=== PATIENT | female | born 1970 | race Caucasian/White ===

== ENCOUNTER 2024-11-21 10:02 | Emergency (ER) | payer SELFPAY ==
[2024-11-21 10:05] VITALS: BP 165/78
[2024-11-21] MEDS: NSS 1000 IV (10:28)
--- NOTE | 2024-11-21 10:30 | ED.GENMED ---
History of Present Illness
General
Chief Complaint: Abdominal Symptoms
Source: patient
Exam Limitations: none
Time Seen by Provider: 11/21/24 10:07
Nursing documentation reviewed up to this point in time: agreed with
History of Present Illness
History of Present Illness:
Patient germán is a 54-year-old female presents to the ER for evaluation. Patient reports she went to bed very late around 4:30 AM because she was wrapping presents and woke up at 8 AM feeling very nauseous and dizzy.
She went to her bathroom and and had vomiting diarrhea at the same time and had to lay on her floor. She was not able to get herself up and had to call EMS. Since then patient had another episode of diarrhea. She did receive Zofran from EMS and
does feel better.
She denies any fevers no other sick contacts at home.
Past History
Past History
ED Past Medical History: Fibromyalgia
Patient has exhibited threatening behavior?: No
Social History
Tobacco: Non-smoker
Alcohol: Occasional
Personal:
Living: with family
Review of Systems
Review of Systems
Allergies reviewed?: Yes
All Other Systems: ROS reviewed and negative except as documented in HPI and ROS
Constitutional: Reports fatigue; Denies fever
EENT: Reports no symptoms
Respiratory: Reports no symptoms
Cardiac: Reports no symptoms
ABD/GI: Reports nausea, vomiting and diarrhea; Denies abdominal pain
: Reports no symptoms
Musculoskeletal: Reports no symptoms
Skin: Reports no symptoms
Neurological: Reports no symptoms
Psychiatric: Reports no symptoms
Phy Exam
General Physical Exam
General Presentation: no apparent distress
General age: appears stated age
General Skin: warm and dry
General Habitus: normal
General Mental: alert
General Hydration: dry mucous membranes
Cardiovascular Exam
Cardiovascular Exam: regular rate/rhythm, no murmur and normal peripheral pulses
Pulmonary Exam
Pulmonary Exam: lungs clear and no respiratory distress
Neurological Exam
Neurological Exam: alert and oriented x3
Musculoskeletal Exam
Musculoskeletal Exam: full ROM
Skin Exam
Skin Exam: normal color and warm/dry
Psychiatric Exam
Psychiatric Exam: normal mood/affect
Course
Orders/Labs/Results
Orders:
Orders
11/21/24 10:26
Ondansetron Injectable [Zofran] 4 mg .ROUTE .STK-MED ONE
11/21/24 10:27
0.9% Sodium Chloride 1000 ml [Nss] 1,000 ml IV BOLUS
11/21/24 10:29
Complete Blood Count/With Diff Urgent
Comprehensive Metabolic Panel Urgent
Lipase Urgent
11/21/24 11:31
Ondansetron Injectable [Zofran] 4 mg IV NOW STA
Abnormal Lab Results
11/21/24
10:29
WBC 17.9 H 10^3/uL
(4.8-10.8)
Abs Immat Gran (auto) 0.1 H 10^3/uL
(0-0.05)
Absolute Neuts (auto) 16.3 H 10^3/uL
(1.4-6.5)
Absolute Lymphs (auto) 0.7 L 10^3/uL
(1.2-3.4)
Immature Gran % 0.6 H %
(0-0.5)
Neutrophils % 91.4 H %
(42.2-75.2)
Lymphocytes % 4.1 L %
(20.5-51.1)
Chloride 108 H mmol/L
(98-107)
Carbon Dioxide 18 L mmol/L
(22-30)
BUN 20 H mg/dl
(7-17)
Creatinine 0.5 L mg/dL
(0.6-1.0)
Glucose 135 H mg/dl
(70-99)
Calcium 10.5 H mg/dl
(8.4-10.2)
11/21/24 10:29
11/21/24 10:29
Vital Signs
Initial and Last Documented VS:
Initial Vital Signs
Temp Pulse Resp BP Pulse Ox
97.9 F 80 16 165/78 100
11/21/24 10:05 11/21/24 10:05 11/21/24 10:05 11/21/24 10:05 11/21/24 10:05
Last Documented Vital Signs
Temp Pulse Resp BP Pulse Ox
97.9 F 72 18 173/84 99
11/21/24 10:05 11/21/24 11:50 11/21/24 11:50 11/21/24 11:50 11/21/24 11:50
MDM/Problems Addressed
Differential Diagnosis Includes:
Not limited to viral syndrome, dehydration
MDM/Problems Addressed:
Symptoms are consistent with likely viral syndrome. Patient no acute distress feeling better as she arrived to the ER after EMS gave her Zofran. She had no episodes of vomiting or diarrhea here. She is feeling well enough and requesting to go
home. Her white count is likely from symptoms she denies any abdominal pain abdomen soft and nontender she was given fluids however nontoxic-appearing stable for discharge home will DC with Zofran.
*Pulse Oximetry
Patient hypoxic: no
*Critical Care Note
Total Time (30-74mins, 75-104mins- exclusive of procedures): Not Applicable
ED Attending Note
-
Portions of this chart may have been created with voice recognition software.� Occasional wrong word or��sound alike� substitutions may have occurred due to the inherent limitations of voice recognition software.
Discharge Plan
Departure
Patient Disposition: Home (Routine Discharge)
Date of Disposition: 11/21/24
Time of Disposition: 11:47
Patient with high blood pressure during this ER visit?: Yes
Condition: Fair
Covid-19: Not Applicable
Discharge Problem:
Nausea and vomiting, Diarrhea
Instructions: Diarrhea in teens and adults, Nausea and Vomiting, Adult (DC), BLOOD PRESSURE
Prescriptions:
New
ondansetron 4 mg tablet,disintegrating
4 mg PO Q8H PRN (Reason: nausea and vomiting) Qty: 10 0RF
Referrals:
Jerry Knutson Jr., DO [Family Provider] -
Activity Restrictions/Additional Instructions:
As discussed clear fluids for the next 24 hours followed by bland solid foods. A prescription for Zofran, nausea medicine was sent to your pharmacy take as directed. You may take Tylenol if needed. Follow-up with your family doctor the next
several days for reevaluation of symptoms return if any worsening of symptoms.
Interventions
Interventions:
*Risk Screen - Suicide Last Done: 11/21/24 10:44
*General Assessment Last Done: 11/21/24 10:05
*Neglect/Abuse Screening Last Done: 11/21/24 10:05
ED- Fall Risk Assessment Last Done: 11/21/24 10:22
WQ-Kinhmy-Larbmytrgd Assessment Last Done: 11/21/24 10:22
Discharge Date and Time
Print Language: SAO TOMEAN
[2024-11-21 10:37] LABS: % Basophils 0.2 % (0-2); % Eosinophils 0.6 % (0-6); % Immature Granulocytes 0.6 % (0-0.5); % Lymphocytes 4.1 % (20.5-51.1); % Monocytes 3.1 % (1.7-9.3); % Neutrophils 91.4 % (42.2-75.2); Absolute Eosinophils 0.1 10^3/uL (0-0.7); Absolute Immature Granulocytes 0.1 10^3/uL (0-0.05); Absolute Lymphocytes 0.7 10^3/uL (1.2-3.4); Absolute Monocytes 0.6 10^3/uL (0.1-0.6); Absolute Neutrophils 16.3 10^3/uL (1.4-6.5); Hematocrit 42.8 % (37.0-47.0); Hemoglobin 15.6 g/dL (12.0-16.0); Mean Corp Hgb Conc. 36.4 g/dL (33.0-37.0); Mean Corpuscular Volume 85.1 fL (81.0-99.0); Mean Platelet Volume 9.4 fL (7.4-10.4); Nucleated Red Blood Cells % 0 %; Platelet Count 249 10^3/uL (130-400); Red Blood Cell Count 5.03 10^6/uL (4.20-5.40); Red Cell Dist. Width 11.7 % (11.5-14.5); White Blood Cell Count 17.9 10^3/uL (4.8-10.8)
[2024-11-21 11:13] LABS: ALT (SGPT) 25 U/L (0-35); AST (SGOT) 29 U/L (14-36); Albumin 4.6 g/dl (3.5-5.0); Alkaline Phosphatase 102 U/L (38-126); Blood Urea Nitrogen 20 mg/dl (7-17); Calcium 10.5 mg/dl (8.4-10.2); Carbon Dioxide 18 mmol/L (22-30); Chloride 108 mmol/L (98-107); Glucose 135 mg/dl (70-99); Potassium 4.4 mmol/L (3.5-5.1); Sodium 138 mmol/L (135-145); Total Bilirubin 0.9 mg/dl (0.2-1.3); Total Protein 7.2 g/dl (6.3-8.2); eGFR > 60.00
[2024-11-21 11:32] LABS: Lipase 109 U/L (23-300)
[2024-11-21 11:50] VITALS: BP 173/84
== END 2024-11-21 12:03 | disposition home or self-care (01) ==
LOC: EMR 10:02
PROVIDERS: Nurse Practitioner; EMERGENCY PHYSICIAN Emergency Medicine; FAMILY PHYSICIAN Family Medicine
DX: R11.2 Nausea with vomiting, unspecified (principal); R19.7 Diarrhea, unspecified; M79.7 Fibromyalgia
CPT/HCPCS: 99283; 80053; 83690; 85025